=== PATIENT | male | born 1955 | race Caucasian/White ===

== ENCOUNTER 2018-02-03 12:48 | Emergency (ER) | payer OTHER ==
[2018-02-03] MEDS: ONDANSETRON 4 MG INJ IV (14:11)
[2018-02-03] MEDS: MECLIZINE 12.5 MG TAB PO (14:11)
[2018-02-03] MEDS: SOD CHLORIDE 0.9% 1,000 ML IV (14:11)
[2018-02-03 14:16] LABS: ADD MAN DIFF? NO
[2018-02-03 14:20] LABS: WHITE BLOOD COUNT 19.7 10^3/ul (4.8-10.8)
[2018-02-03 14:20] LABS: BASOPHILS % 0.2 % (0.0-2.0); EOSINOPHILS % 0.1 % (0.0-7.0); HEMOGLOBIN 15.2 g/dl (14.0-18.0); LYMPHOCYTES # 1.2 10^3/ul (0.8-2.9); MEAN CORPUSCULAR HEMOGLOBIN 31.4 pg (29.0-33.0); MEAN CORPUSCULAR HGB CONC 34.5 g/dl (32.0-37.0); MEAN CORPUSCULAR VOLUME 90.9 fl (82.0-101.0); MEAN PLATELET VOLUME 9.3 fl (7.4-10.4); MONOCYTES % 5.2 % (0.0-11.0); NEUTROPHIL # 17.2 10^3/ul (1.6-7.5); NEUTROPHILS % 87.2 % (39.0-77.0); PLATELET COUNT 254 10^3/UL (140-415); RED BLOOD COUNT 4.84 10^6/ul (4.70-6.10); RED CELL DISTRIBUTION WIDTH 12.4 % (11.5-14.5)
[2018-02-03 14:41] LABS: ANION GAP 13 (8-16); BLOOD UREA NITROGEN 19 mg/dl (7-20); CALCIUM 8.8 mg/dl (8.4-10.2); CARBON DIOXIDE 22 mmol/L (21-31); CHLORIDE 111 mmol/L (97-110); CREATININE 0.86 mg/dl (0.61-1.24); GLUCOSE 96 mg/dl (70-220); POTASSIUM 3.8 mmol/L (3.5-5.1); SODIUM 142 mmol/L (135-144)
[2018-02-03 14:43] LABS: INR 1.02; PROTIME 13.5 Sec (11.9-14.9); PT RATIO 1.1
[2018-02-03 14:44] LABS: PARTIAL THROMBOPLASTIN TIME 24.7 Sec (25.0-35.0)
[2018-02-03 14:53] LABS: B-TYPE NATRIURETIC PEPTIDE 36 PG/ML (0-125); TROPONIN-I 0.013 ng/ml (0.000-0.120)
[2018-02-03 15:26] LABS: UR CLARITY SLIGHTLY CLOUDY (CLEAR); UR COLOR YELLOW (YELLOW); UR SPECIFIC GRAVITY (Dip) 1.025 (1.003-1.030)
[2018-02-03 15:27] LABS: ADD UMIC YES; UR ASCORBIC ACID NEGATIVE (NEGATIVE); UR BILIRUBIN (Dip) NEGATIVE (NEGATIVE); UR BLOOD (Dip) NEGATIVE (NEGATIVE); UR GLUCOSE (Dip) NEGATIVE (NEGATIVE); UR KETONES (Dip) NEGATIVE (NEGATIVE); UR LEUKOCYTE ESTERASE (Dip) NEGATIVE Leu/ul (NEGATIVE); UR MUCUS MANY /HPF (NONE SEEN); UR NITRITE (Dip) NEGATIVE (NEGATIVE); UR RBC 1 /HPF (0-5); UR TOTAL PROTEIN (Dip) 2+ mg/dl (NEGATIVE); UR UROBILINOGEN (Dip) NEGATIVE (NEGATIVE); UR WBC 2 /HPF (0-5)
== END 2018-02-03 16:05 | disposition home or self-care (01) ==
LOC: E/R 12:48
DX: R42 Dizziness and giddiness (principal); R06.02 Shortness of breath
CPT/HCPCS: 36415; 70450; 71045; 80048; 81001; 83880; 84484; 85025; 85610; 85730; 93005; 96374; 99285-25